=== PATIENT | female | born 1985 | race Caucasian/White ===

== ENCOUNTER 2016-03-24 16:22 | Emergency (ER) | payer OTHER ==
[~2016-03-24] VITALS: Ht 172.7 cm; Wt 128.4 kg
[~2016-03-24 16:22] MED LIST: BCPILLS PO; CITA40TA4 PO; MULT-506 PO
[2016-03-24 16:38] VITALS: TEMP 37; Ht 172.7 cm; Wt 128.4 kg
[2016-03-24 18:00] LABS: BASO % 0.3 %; BASO ABS # 0.02 K/uL (0-0.2); COMPLETE YES; EOS % 3.5 %; HEMATOCRIT 40.3 % (37-47); IG% 0.3 %; LYMPH % 37.4 %; LYMPH ABS # 2.46 K/uL (1.2-3.4); MEAN CELL VOLUME 86.7 fL (80-100); MEAN CORPUSCULAR HEMOGLOBIN 30.1 pg (25-34); MEAN CORPUSCULAR HGB CONC 34.7 g/dl (32-36); MEAN PLATELET VOLUME 10.7 fL (7.4-10.4); MONO % 4.3 %; NEUT % 54.2 %; PLATELET COUNT 203 K/uL (130-400); RED BLOOD COUNT 4.65 M/uL (4.2-5.4); WHITE BLOOD COUNT 6.57 K/uL (4.8-10.8)
[2016-03-24 18:20] LABS: ALT/SGPT 40 U/L (12-78); BLOOD UREA NITROGEN 10 mg/dl (7-18); BUN/CREATININE RATIO 14.7 (10-20); CALCIUM 8.8 mg/dl (8.5-10.1); CARBON DIOXIDE 24 mmol/L (21-32); CHLORIDE 107 mmol/L (98-107); CREATININE 0.66 mg/dl (0.60-1.20); GLUCOSE 72 mg/dl (70-99); POTASSIUM 3.6 mmol/L (3.5-5.1); SODIUM 142 mmol/L (136-145)
[2016-03-24 18:22] LABS: URINE APPEARANCE CLEAR (CLEAR); URINE BILIRUBIN NEG (NEG); URINE COLOR YELLOW; URINE NITRITE NEG (NEG); URINE PH 5.5 (4.5-7.5); URINE SPECIFIC GRAVITY 1.012 (1.000-1.030); UROBILINOGEN NEG (NEG); ZZUR CULT IF INDIC CLEAN CATCH NO
[2016-03-24 18:23] LABS: ALKALINE PHOSPHATASE 65 U/L (45-117); AST/SGOT 24 U/L (15-37)
[2016-03-24 18:24] LABS: MANUAL MICROSCOPIC REQUIRED? NO; REVIEW REQ? NO
--- NOTE | 2016-03-24 19:46 | DIAGNOSTIC IMAGING REPORT ---
PELVIC ULTRASOUND, TRANSABDOMINAL AND TRANSVAGINAL HISTORY: Bleeding lower pelvic pain COMPARISON: None. FINDINGS: Uterus: 7.8 cm Endometrial stripe: 3 mm Right ovary: 3.7 cm. Normal vascular flow. Left ovary: 3.0 cm. Normal vascular flow. Miscellaneous:No pelvic free fluid. IMPRESSION: No significant abnormality identified within the pelvis. Electronically signed by: Denis Sutton M.D. 03/24/2016 7:44 PM Dictated Date/Time: 03/24/2016 7:43 PM
[2016-03-24 20:22] VITALS: BP 147/84; PULSE 76; O2SAT 99
--- NOTE | 2016-03-24 21:17 | EMERGENCY ROOM VISIT NOTE ---
History Report prepared by Anne: Frank Renteria Under the Supervision of: Dr. Lionel Stewart D.O. First contact with patient: 17:25 Chief Complaint: URINARY SYMPTOMS Stated Complaint: URINATING BLOOD, PAIN IN ABDOMEN & URETHRA, NAUSEA Nursing Triage Summary: Reports lower abdominal pain and pain with urethra. Also reports hematuria. Seen at [facility] and tested negative for uti. Symptoms started 4 days ago. History of Present Illness The patient is a 30 year old female who presents to the Emergency Room with complaints of recurrent pain with urination for the past four days. The pain is felt in her urethra. The patient started to notice blood in her urine yesterday. She started to experience lower abdominal today. The patient also complains of nausea. She notes that it feels like she needs to urinate more after she is finished. Patient denies headache, change in vision, fevers, chest pain, shortness of breath, nausea, vomiting, diarrhea, vaginal bleeding/ discharge, urinary frequency, and melena. The patient was seen by [facility], where she tested negative for a UTI. She does not have a history of UTIs. She denies any history of herpes or other STDs. She does not have any genital lesions. LNMP was last week, which only lasted three days. She had an IUD that was improperly placed removed that week before her LMP. The patient is s/p appendectomy and cholecystectomy. Source of History: patient Onset: four days Position: other (urinary) Quality: other (pain with urination) Timing: other (recurrent) Associated Symptoms: + abdominal pain, + nausea, + urinary symptoms, No SOB , No chest pain, No diarrhea, No fevers, No headache, No melena, No vomiting Review of Systems See HPI for pertinent positives & negatives. A total of 10 systems reviewed and were otherwise negative. Past Medical & Surgical Medical Problems: (1) Active labor (2) Intrauterine (3) Lightheadedness Surgical Problems: (1) S/P appendectomy (2) S/P cholecystectomy Family History Patient reports no known family medical history. Social History Smoking Status: Never Smoker Housing Status: lives with family Current/Historical Medications Scheduled Control Pills ( Control Pills), 1 TAB PO QAM Citalopram (Citalopram Hydrobromide), 1 TAB PO QAM Allergies Coded Allergies: Chlorhexidine (Unverified Allergy, Unknown, UNKNOWN, 2/17/17) Isopropyl Alcohol (Unverified Allergy, Unknown, UNKNOWN, 03/24/16) Molds and Smuts (Verified Allergy, Unknown, HAYFEVER, 03/24/16) Sulfa Drugs (Verified Allergy, Unknown, rxn unknown, 03/24/16) Physical Exam Vital Signs Date Time Temp Pulse Resp B/P Pulse Ox O2 Delivery O2 Flow Rate FiO2 03/24/16 20:22 76 18 147/84 99 03/24/16 19:00 72 20 152/85 99 Room Air 03/24/16 16:38 37.0 79 18 141/92 98 Room Air Physical Exam GENERAL: Sitting up in bed, alert, well appearing, well nourished, no distress, non-toxic EYE EXAM: normal conjunctiva. OROPHARYNX: no exudate, no erythema, lips, buccal mucosa, and tongue normal and mucous membranes are moist NECK: supple, no nuchal rigidity, no adenopathy, non-tender LUNGS: Clear to auscultation. Normal chest wall mechanics HEART: no murmurs, S1 normal and S2 normal ABDOMEN: abdomen soft, tender to palpation in the suprapubic region, normo- active bowel sounds, no masses, no rebound or guarding. BACK: Back is symmetrical on inspection and there is no deformity, no midline tenderness, no CVA tenderness. SKIN: no rashes and no bruising UPPER EXTREMITIES: upper extremities are grossly normal. LOWER EXTREMITIES: No pitting edema. NEURO EXAM: Normal sensorium, cranial nerves II-XII grossly intact, normal speech, no gross weakness of arms, no gross weakness of legs. Gross sensation intact. PELVIC: Normal external genitalia, normal vaginal mucosa, no adnexal or cervical motion tenderness, cervix is closed with mild amount of swelling erythema. Medical Decision & Procedures ER Provider Diagnostic Interpretation: US results have been interpreted by the radiologist and reviewed by me. PELVIC ULTRASOUND, TRANSABDOMINAL AND TRANSVAGINAL HISTORY: Bleeding lower pelvic pain COMPARISON: None. FINDINGS: Uterus: 7.8 cm Endometrial stripe: 3 mm Right ovary: 3.7 cm. Normal vascular flow. Left ovary: 3.0 cm. Normal vascular flow. Miscellaneous:No pelvic free fluid. IMPRESSION: No significant abnormality identified within the pelvis. Electronically signed by: Denis Sutton M.D. 03/24/2016 7:44 PM Dictated Date/Time: 03/24/2016 7:43 PM Laboratory Results 03/24/16 17:51 Red Blood Count 4.65, Mean Corpuscular Volume 86.7, Mean Corpuscular Hemoglobin 30.1, Mean Corpuscular Hemoglobin Concent 34.7, Mean Platelet Volume 10.7, Neutrophils (%) (Auto) 54.2, Lymphocytes (%) (Auto) 37.4, Monocytes (%) (Auto) 4.3, Eosinophils (%) (Auto) 3.5, Basophils (%) (Auto) 0.3, Neutrophils # (Auto) 3.56, Lymphocytes # (Auto) 2.46, Monocytes # (Auto) 0.28, Eosinophils # (Auto) 0.23, Basophils # (Auto) 0.02 03/24/16 17:51 Test 03/24/16 00:00 03/24/16 17:51 03/24/16 19:50 Urine Color YELLOW Urine Appearance CLEAR (CLEAR) Urine pH 5.5 (4.5-7.5) Urine Specific [place] 1.012 (1.000-1.030) Urine Protein NEG (NEG) Urine Glucose (UA) NEG (NEG) Urine Ketones NEG (NEG) Urine Occult Blood NEG (NEG) Urine Nitrite NEG (NEG) Urine Bilirubin NEG (NEG) Urine Urobilinogen NEG (NEG) Urine Leukocyte Esterase NEG (NEG) Urine WBC (Auto) 1-5 /hpf (0-5) Urine RBC (Auto) 0-4 /hpf (0-4) Urine Hyaline Casts (Auto) 0 /lpf (0-5) Urine Epithelial Cells (Auto) 5-10 /lpf (0-5) Urine Bacteria (Auto) NEG (NEG) Urine Test NEG (NEG) White Blood Count 6.57 K/uL (4.8-10.8) Red Blood Count 4.65 M/uL (4.2-5.4) Hemoglobin 14.0 g/dL (12.0-16.0) Hematocrit 40.3 % (37-47) Mean Corpuscular Volume 86.7 fL (80-100) Mean Corpuscular Hemoglobin 30.1 pg (25-34) Mean Corpuscular Hemoglobin Concent 34.7 g/dl (32-36) Platelet Count 203 K/uL (130-400) Mean Platelet Volume 10.7 fL (7.4-10.4) Neutrophils (%) (Auto) 54.2 % Lymphocytes (%) (Auto) 37.4 % Monocytes (%) (Auto) 4.3 % Eosinophils (%) (Auto) 3.5 % Basophils (%) (Auto) 0.3 % Neutrophils # (Auto) 3.56 K/uL (1.4-6.5) Lymphocytes # (Auto) 2.46 K/uL (1.2-3.4) Monocytes # (Auto) 0.28 K/uL (0.11-0.59) Eosinophils # (Auto) 0.23 K/uL (0-0.5) Basophils # (Auto) 0.02 K/uL (0-0.2) RDW Standard Deviation 40.7 fL (36.4-46.3) RDW Coefficient of Variation 12.7 % (11.5-14.5) Immature Granulocyte % (Auto) 0.3 % Immature Granulocyte # (Auto) 0.02 K/uL (0.00-0.02) Anion Gap 11.0 mmol/L (3-11) Est Creatinine Clear Calc Drug Dose 173.3 ml/min Estimated GFR () 135.5 Estimated GFR (Non- 116.9 BUN/Creatinine Ratio 14.7 (10-20) Calcium Level 8.8 mg/dl (8.5-10.1) Total Bilirubin 0.3 mg/dl (0.2-1) Direct Bilirubin < 0.1 mg/dl (0-0.2) Aspartate Amino Transf (AST/SGOT) 24 U/L (15-37) Alanine Aminotransferase (ALT/SGPT) 40 U/L (12-78) Alkaline Phosphatase 65 U/L (45-117) Total Protein 7.8 gm/dl (6.4-8.2) Albumin 4.0 gm/dl (3.4-5.0) Lipase 179 U/L (73-393) Laboratory results per my review. ED Course ED COURSE: Vital signs were reviewed and were normal. The patients medical record was reviewed The above diagnostic studies were performed and reviewed. ED treatments and interventions as stated above. 1735: The patient was evaluated in room C1b. A complete history and physical examination was performed. 1950: Pelvic examination performed. 2000: Updated the patient. 2015: Upon reevaluation, the patient is stable.I discussed my findings with the patient and she understands and agrees with the treatment plan. Based on the patients age, coexisting illnesses, exam and lab findings the decision to treat as an outpatient was made. The patient remained stable while under my care. The patient appeared well at the time of discharge. Medical Decision Differential diagnoses includes but is not limited to appendicitis, diverticulitis, small bowel obstruction, malignancy, hernia, urinary tract infection, torsion, and ectopic (if female), perforation, trauma, infectious. Patient is a 30-year-old female who presents the ER with dysuria and a feeling that she has to void following urination. Patient does have lower pelvic pain and accommodation with this. No other complaints. She has a previous appendectomy/cholecystectomy. Vitals are unremarkable. CBC along with BMP, LFTs and lipase are normal. Her abdominal exam is completely benign. Last bowel movement was last night. Nothing to suggest obstruction. UA was negative. was negative. Pelvic was unremarkable with exception of slight erythematous cervix. She was nontender on exam. No discharge. She will start the Macrobid given to her by [facility]. Cultures were sent. If pain continues on Sunday she will follow-up with her ACCESS COORDINATOR or PCP. Discussed with Pt concerning signs and symptoms to watch out for. Pt was instructed to follow up with their PCP and discussed with the patient their option to return to the ED at anytime for persistent or worsening symptoms. The appropriate anticipatory guidance and out-patient management, including indications for return to the emergency department, were explained at length to the patient and understood. Impression Primary Impression: Symptoms involving urinary system Scribe Attestation The scribe's documentation has been prepared under my direction and personally reviewed by me in its entirety. I confirm that the note above accurately reflects all work, treatment, procedures, and medical decision making performed by me. Departure Information Dispostion Home / Self-Care Referrals No Doctor, Assigned (PCP) Forms HOME CARE DOCUMENTATION FORM, IMPORTANT VISIT INFORMATION Patient Instructions ED Dysuria Uncertain Cause, My [facility] Additional Instructions Please follow up with your primary care doctor with in the next 24 hours. Any worsening of your symptoms, please return to the ED immediately. This includes any fevers grade and 100.4, back pain, persistent nausea vomiting, unable to move her bowels, new vaginal bleeding or discharge, or any other concerning signs or symptoms from your standpoint. It may be beneficial at this point to start Macrobid which was given to you by [facility]. You will receive a call from us within 48 hours if your cultures return positive. If your symptoms persist for the next 48 hours you must follow up with your primary care doctor/gynecology immediately per
[2016-03-28 09:32] LABS: CHLAMYDIA TRACH RNA*** NOT DETECTED (NOT DETECTED); GC (NEIS GONORRHOEAE)RNA** NOT DETECTED (NOT DETECTED)
== END 2016-03-24 20:27 | disposition home or self-care (01) ==
LOC: C.EDB 16:24 → C.EDC 20:27
DX: R39.9 Unspecified symptoms and signs involving the genitourinary system (principal); Z90.49 Acquired absence of other specified parts of digestive tract

== ENCOUNTER → 2017-03-16 | Outpatient (CLI) | payer OTHER ==
[~2017-03-16] MED LIST changes: -MULT-506 PO
== END | disposition home or self-care (01) ==
LOC: C.LAB1850 15:00
PROVIDERS: ATTEND Obstetrics & Gynecology
DX: N93.9 Abnormal uterine and vaginal bleeding, unspecified (principal)

== ENCOUNTER → 2017-05-21 | Outpatient (CLI) | payer OTHER | END | disposition home or self-care (01) | LOC: C.RDSM 18:55 | PROVIDERS: ATTEND Physical Medicine & Rehabilitation Sports Medicine | DX: M25.531 Pain in right wrist (principal) ==

== ENCOUNTER 2019-12-26 08:34 | Observation (INO) ==
--- NOTE | 2019-12-02 13:24 | PAT Medication Instructions ---
Medication Instructions Date of Service December 02, 2019 Home Medications Medication Instructions Recorded norethindrone 1 mg-ethinyl 1 tab PO DAILY #28 tab 12/01/19 estradiol 20 mcg (24)-iron 75 mg (4) tablet Lactobacillus acidophilus [Probiotic] 0 cell PO QAM cholecalciferol (vitamin D3) [Vitamin D3] 1,000 unit PO QAM citalopram 20 mg PO QAM albuterol sulfate 2 puff INHALATION QID PRN loratadine 10 mg PO QAM metoprolol succinate 25 mg PO DAILY PRN norethindrone 1 mg-ethinyl estradiol 20 mcg (24)-iron 75 mg (4) tablet 1 tab PO DAILY ASK your surgeon for instructions norethindrone 1 mg-ethinyl estradiol 20 mcg (24)-iron 75 mg (4) tablet 1 tab PO DAILY DO NOT take the morning of surgery Lactobacillus acidophilus [Probiotic] 0 cell PO QAM cholecalciferol (vitamin D3) [Vitamin D3] 1,000 unit PO QAM loratadine 10 mg PO QAM Take morning of surgery With a small sip of water, OTHERWISE NOTHING TO EAT OR DRINK AFTER MIDNIGHT: citalopram 20 mg PO QAM albuterol sulfate 2 puff INHALATION QID PRN (use if needed; please bring with you to hospital day of surgery if possible) metoprolol succinate 25 mg PO DAILY PRN (if needed) Take evening before surgery albuterol sulfate 2 puff INHALATION QID PRN (if needed) Other Notes If you have any questions please call us at [phone] or [phone] or [phone] or [phone]
--- NOTE | 2019-12-04 14:49 | Anesthesiology Consultation ---
Date of Service December 04, 2019 Assessment & Plan (1) Encounter for pre-operative examination: Chart Review Chart Review: Acceptable Risk for Surgery (pending preop Covid testing ) and Patient seen in Pre Admission Testing - Check test AM DOS Per PAT appt on 12/04/19, patient works and resides in [facility]. Wears mask, uses good hand hygiene and socially distances. No known Covid positive contacts or Covid related symptoms. Pt scheduled for preop Covid testing 12/22/19. Educated on importance of self quarantining, social distancing and wearing mask in public both for the patient and household contacts. Teaching & Discussion Pre-Anesthesia Teaching/Discussion Notes: Instructed NPO after midnight before surgery,except medications with 15 cc of water. Medication instructions provided according to the [facility] guidelines. History Surgery Operation Date: 12/26/19 07:30 Proposed Procedures p Robotic Total Laparoscopic Hysterectomy - Solitario Iglesias MD Height/Weight Height: 5 ft 6 in Weight: 143.5 kg Allergies Allergy/AdvReac Type Severity Reaction Status Date / Time shellfish derived Allergy Severe Tongue/Throat Verified 12/04/19 13:20 Swelling chlorhexidine Allergy Mild HIVES Verified 12/04/19 13:20 lactose Allergy Mild GI SYMPTOMS Verified 12/04/19 13:20 mold Allergy Unknown HAYFEVER Verified 12/04/19 13:20 Sulfa (Sulfonamide Allergy Unknown Unknown Verified 12/04/19 13:20 Antibiotics) Medications Home Medications Medication Instructions Recorded Confirmed Last Taken Lactobacillus acidophilus 0 cell PO QAM 08/15/18 12/04/19 08/15/18 [Probiotic] cholecalciferol (vitamin D3) 1,000 unit PO QAM 08/15/18 12/04/19 08/15/18 [Vitamin D3] citalopram 20 mg PO QAM 08/15/18 12/04/19 08/15/18 albuterol sulfate 2 puff INHALATION QID PRN 11/15/18 12/04/19 Unknown loratadine 10 mg PO QAM 11/07/19 12/04/19 Unknown metoprolol succinate 25 mg PO DAILY PRN 11/07/19 12/04/19 Unknown norethindrone 1 mg-ethinyl 1 tab PO DAILY #28 tab 12/01/19 12/04/19 Unknown estradiol 20 mcg (24)-iron 75 mg (4) tablet Past Medical History Medical History (Updated 12/05/19 @ 08:49 by Susana Pacheco PA-C) Adenomyosis Anxiety Stable with medications Arthritis Fibrocystic breast disease Stable PVC (premature ventricular contraction) OCCURED WITH INTERMITTENT FASTING- PT NO LONGER INTERMITTENT FASTING Exercise / Class Metabolic Activity II 4-5 Yardwork/Stairs/Walk up hill (ONE FLIGHT OF STAIRS -NO CHEST PAIN OR SOB) Past Family History Family History Mother Arthritis Heart disease Atrial flutter Sister Asthma Bronchitis Gestational diabetes Grandmother Diabetes Cancer Colorectal cancer Grandfather Cancer Past Surgical History Surgical History History of anesthesia reaction "PANIC ATTACK WAKING UP" History of appendectomy 2010 History of breast biopsy Left Breast [id number] History of carpal tunnel release RIGHT History of laparoscopic cholecystectomy 2016 History of tonsillectomy Past Anesthesia History No Hx of Anesthesia Complications (WITH EXCEPTION POST OP ANXIETY AND SOB) and No Family Hx of Anesthesia Complications (WITH EXCEPTION TO MOTHER- ANXIOUS POSTOP ) History of PONV No Hx of PONV and Hx of Motion Sickness (SIGNIFICANT VERTIGO ) Social History Smoking Status: Former smoker Do You Dip or Chew Tobacco: No Smoking End Date: QUIT 10-12 YRS AGO Hx Alcohol Use: Yes Alcohol type: wine alcohol intake frequency: holidays/special occasions only Hx Substance Use: No Review of Systems Occ reflux - relieved with OTC Tums Patient denies chest pain, shortness of breath, dyspnea on exertion, cough, wheezing, palpitations. No hx of seizures, stroke, NV, apnea/snoring. No hx of blood clots or blood transfusions Physical Exam Vital Signs VITALS BP (unable to obtain- manual BP cuff not functioning properly- BP 128/72 at [facility] appt on 12/04/19) P 79 TEMP 98.0 SP02 98% RESP 16 PHYSICAL Constitutional: No acute distress. Morbid obesity Full neck and c-spine range of motion. Thick neck Full TMJ range of motion. TMD 3.5 finger breaths Mallampati Score II Dentition: Crowns to molars Lungs: clear throughout to auscultation Cardiac: regular rate and rhythm, no murmurs noted. No carotid bruits noted Extremities: no edema Testing Laboratory Results 12/04/19 15:15 12/04/19 15:15 Blood Type A Positive 12/04/19 15:15 Antibody Screen NEGATIVE 12/04/19 15:15 Electrocardiogram Date: 12/04/19 Findings: + NSR @ (73) Normal EKG. Other Testing Holter monitor 08/22/19= baseline rhythm - NSR. Occ isolated PVCs with single morphology. Very rare PACs. There were no pauses greater than 3 seconds or evidence of AVB. Symptoms of palpitations correlated predominantly with timing of isolated PVCs and rare ST.
[2019-12-04 15:46] LABS: Basophils # (auto) 0.02 K/uL (0-0.2); Basophils % (auto) 0.3 %; Eosinophils # (auto) 0.28 K/uL (0-0.5); Eosinophils % (auto) 3.6 %; Hematocrit (blood only) 38.6 % (37-47); Hemoglobin 12.9 g/dL (12.0-16.0); Immature Granulocytes # (auto) 0.03 K/uL (0.00-0.02); Immature Granulocytes % (auto) 0.4 %; Lymphocytes # (auto) 2.35 K/uL (1.2-3.4); Mean Corpuscular Hemoglobin 29.4 pg (25-34); Mean Corpuscular Hgb Conc 33.4 g/dL (32-36); Mean Corpuscular Volume 87.9 fL (80-100); Mean Platelet Volume 10.9 fL (7.4-10.4); Monocytes # (auto) 0.34 K/uL (0.11-0.59); Monocytes % (auto) 4.3 %; Neutrophils # (auto) 4.82 K/uL (1.4-6.5); Neutrophils % (auto) 61.4 %; Platelet Count 211 K/uL (130-400); RDW Coefficient of Variation 12.5 % (11.5-14.5); RDW Standard Deviation 40.2 fL (36.4-46.3); Red Blood Count 4.39 M/uL (4.2-5.4); White Blood Count 7.84 K/uL (4.8-10.8)
[2019-12-04 16:13] LABS: BUN Creatinine Ratio 16.2 (10-20); Calcium 8.8 mg/dl (8.5-10.1); Est GFR (African American) 131.7; Est GFR (Non-African American) 113.6
--- NOTE | 2019-12-05 05:36 | Electrocardiogram Report ---
Test Reason : Blood Pressure : / mmHG Vent. Rate : 073 BPM Atrial Rate : 073 BPM P-R Int : 178 ms QRS Dur : 092 ms QT Int : 420 ms P-R-T Axes : 065 069 037 degrees QTc Int : 462 ms Normal sinus rhythm Normal ECG When compared with ECG of 15-NOV-2018 19:33, Questionable change in QRS axis Confirmed by Tramaine De Paz ([id number]) on 12/05/2019 5:36:17 AM Referred By: Solitario Iglesias Confirmed By:Tramaine De Paz
[~2019-12-26 08:34] MED LIST changes: -BCPILLS PO; -CITA40TA4 PO; +LACTATED RINGER'S 1,000 ML IV SCH; +LR 15ML/HR IV SCH
[2019-12-26] MEDS ORDERED: BUPIVACAINE 0.5 % 5 MG/1 ML MPF 30ML VIAL ONE (08:44)
--- NOTE | 2019-12-26 08:58 | History & Physical Bridge Note ---
Date of Service December 26, 2019 History & Physical Bridge Note I have examined the patient, reviewed the History & Physical and in the interval since the performance of the History & Physical I have noted the following changes of clinical significance: no changes noted
[2019-12-26 09:00] LABS: Basophils # (auto) 0.02 K/uL (0-0.2); Basophils % (auto) 0.3 %; Eosinophils # (auto) 0.26 K/uL (0-0.5); Eosinophils % (auto) 3.4 %; Hemoglobin 13.9 g/dL (12.0-16.0); Immature Granulocytes # (auto) 0.01 K/uL (0.00-0.02); Immature Granulocytes % (auto) 0.1 %; Lymphocytes # (auto) 2.15 K/uL (1.2-3.4); Lymphocytes % (auto) 27.7 %; Mean Corpuscular Hemoglobin 29.8 pg (25-34); Mean Corpuscular Volume 90.1 fL (80-100); Mean Platelet Volume 10.8 fL (7.4-10.4); Monocytes # (auto) 0.28 K/uL (0.11-0.59); Monocytes % (auto) 3.6 %; Neutrophils # (auto) 5.04 K/uL (1.4-6.5); Neutrophils % (auto) 64.9 %; Platelet Count 226 K/uL (130-400); RDW Coefficient of Variation 12.8 % (11.5-14.5); RDW Standard Deviation 41.9 fL (36.4-46.3); Red Blood Count 4.66 M/uL (4.2-5.4); White Blood Count 7.76 K/uL (4.8-10.8)
[2019-12-26] MEDS ORDERED: ePHEDrine sulfate 50 MG/ML AMP IV PRN (09:13)
[2019-12-26] MEDS ORDERED: ATROPINE SULFATE 0.1 MG/ML 10ML SYR IV PRN (09:13)
[2019-12-26] MEDS ORDERED: fentaNYL citrate 100 MCG/2 ML VIAL IV PRN (09:13)
[2019-12-26] MEDS ORDERED: ONDANSETRON INJ 2 MG/ML 2 ML VIAL IV PRN ×2 (09:13→12:33)
[2019-12-26] MEDS ORDERED: LIDOCAINE HCL 2% 2 ML VIAL/AMP(20MG/ML) INFIL ONE (09:17)
[2019-12-26] MEDS ORDERED: PROPOFOL IV EMULSION 10 MG/ML 20 ML VIAL IV ONE ×2 (09:17→11:22)
[2019-12-26] MEDS ORDERED: MIDAZOLAM HCL 1 MG/ML 2ML VIAL ONE (09:18)
[2019-12-26] MEDS ORDERED: HYDROmorphone INJ 2 MG/ML SYR/VIAL ONE (09:18)
[2019-12-26] MEDS ORDERED: fentaNYL citrate 100 MCG/2 ML VIAL ONE (09:18)
[2019-12-26 09:20] LABS: Mean Corpuscular Hgb Conc 33.1 g/dL (32-36)
[2019-12-26] MEDS ORDERED: ONDANSETRON INJ 2 MG/ML 2 ML VIAL ONE (11:22)
[2019-12-26] MEDS ORDERED: DEXAMETHASONE SOD INJ 4 MG/ML VIAL ONE (11:22)
[2019-12-26] MEDS ORDERED: ROCURONIUM BROMIDE 10 MG/ML 5 ML VIAL IV ONE (11:22)
[2019-12-26] MEDS ORDERED: TISSEEL FIBRIN SEALANT 10ML TOP ONE (11:57)
[2019-12-26] MEDS ORDERED: SIMETHICONE 80 MG CHEW PO PRN (12:33)
[2019-12-26] MEDS ORDERED: oxyCODONE/ACETAMINOPHEN 5mg/325mg TAB PO PRN ×2 (12:33)
[2019-12-26] MEDS ORDERED: IBUPROFEN 600 MG TAB PO PRN (12:33)
[2019-12-26] MEDS ORDERED: KETOROLAC 30 MG/ML VIAL IV PRN (12:33)
[2019-12-26] MEDS ORDERED: ACETAMINOPHEN 325 MG TAB PO PRN (12:33)
--- NOTE | 2019-12-26 12:33 | Post Operative Brief Note ---
PG Immediate Post Op with CF Date of Surgery December 26, 2019 Pre & Post Diagnosis Operation Date: 12/26/19 10:15 Pre-Op Diagnosis: Menorrhagia, Pelvic Pain Post-Op Diagnosis: Menorrhagia, Pelvic Pain I identified the patient and participated in the time-out.: Yes Procedure Operation Date: 12/26/19 10:15 Actual Procedures p Robotic Total Laparoscopic Hysterectomy, Bilateral Salpingectomy, Cystoscopy(Not Applicable) - Solitario Iglesias MD Surgeon Solitario Iglesias MD Hand Wrapper Operator Dr Cat Estimated Blood Loss 20 Findings Consistent with Post-Op Diagnosis Specimens Specimen Description: A. Uterus, cervix, bilateral fallopian tubes Drains Gurrola Catheter
[2019-12-26] MEDS ORDERED: SUGAMMADEX SODIUM 200 MG/2 ML VIAL IV ONE (12:47)
[2019-12-26] MEDS ORDERED: TISSEEL FIBRIN SEALANT 4ML TOP ONE (12:53)
--- NOTE | 2019-12-26 13:12 | Operative Report (OR) ---
DATE OF OPERATION: 12/26/2019 PROCEDURE: Total laparoscopic hysterectomy, bilateral salpingectomy and cystoscopy. SURGEON: Solitario Iglesias MD. MARBLEIZING MACHINE TENDER: Mariam Cat MD. PREOPERATIVE DIAGNOSES: 1. Abnormal uterine bleeding. 2. Chronic pelvic pain. 3. Suspected adenomyosis. POSTOPERATIVE DIAGNOSES: 1. Abnormal uterine bleeding. 2. Chronic pelvic pain. 3. Suspected adenomyosis. 4. Status post procedure. ESTIMATED BLOOD LOSS: 20 mL. DRAINS: A Gurrola catheter. FLUIDS: Continuous lactated Ringer. URINE OUTPUT: 400 mL via Gurrola. COMPLICATIONS: None. FINDINGS: There is noted to be an approximate 11-12 week size uterus with findings consistent with adenomyosis due to a bulky appearance and irregular contours of the uterus. Both ovaries and fallopian tubes were unremarkable. There is noted to be bilateral ureteral efflux and intact bladder on cystoscopy at the completion of the case. DESCRIPTION OF PROCEDURE: The patient was taken to the operating room after consents were ensured. Upon presentation, she was properly identified. General endotracheal anesthesia was obtained without difficulty per COVID precautions, after which the patient was then prepped and draped in normal sterile fashion. A preprocedural timeout was performed. A speculum was then placed within the vagina. Cervix was visualized. Single tooth tenaculum was placed on the superior aspect of the cervix. A Awesome.meare uterine manipulator was then placed per hemodialysis technician specifications without difficulty. A Gurrola catheter was then placed and the laparoscopic portion of the case was then initiated. An incision was made in the superior aspect of the umbilicus to accommodate an 8 mm trocar. A Veress needle was inserted through the incision. The abdomen was insufflated to 15 mmHg. There was noted to be symmetric abdominal rise and tympany of liver and opening pressure of approximately 5 mmHg, all consistent with appropriate intra-abdominal insufflation. An 8 mm optically guided trocar was then introduced through the incision with atraumatic entry noted with immediate inspection after entry. Incisions were then made in the right, left, and left upper quadrant to accommodate 8 mm trocars, which were all placed without difficulty and atraumatic entry noted. The robot was then docked. The left round ligament was then identified, serially cauterized and dissected. The left fallopian tube was then dissected off the mesosalpinx. The left uteroovarian vessels were then serially cauterized and dissected and carried back to the level of the round ligament. The bladder flap was then created anteriorly starting on the left continued to the right side to the midline. The broad ligament was then serially cauterized down to the level of the uterine vessels on the left side. The right round ligament was then identified, serially cauterized and dissected. The right uteroovarian vessel was then serially cauterized, dissected and carried back to the level of the right round ligament dissection. The bladder flap was then continued anteriorly on the right connecting with the bladder flap initiated on the left. The bladder was then dissected off the lower uterine segment and cervix. The right broad ligament was then serially cauterized, dissected down to the level of the right uterine vessels. The V cup was then identified and the bladder was noted to be well dissected. Both uterine vessels were then serially cauterized and dissected. The colpotomy was then made anterior and continued circumferentially around the cervix, freeing the cervix from the vagina. The uterus and cervix were then delivered through the hysterotomy. The right fallopian tube was still intact and was then serially dissected and delivered through the assist port trocar. The left fallopian tube was still attached to the uterus and was dissected with the initial dissection of the left side. The vaginal cuff was then reapproximated with a V-Loc suture in continuous running stitch. Air tight seal was noted at the completion of the closure. The Tisseel was then distributed throughout all raw edges and vascular pedicles and excellent hemostasis was noted. The robot was then undocked. Abdomen desufflated. All skin incisions were reapproximated with 3-0 Vicryl with interrupted stitch. Dermabond placed on top. 12 mL of lidocaine were distributed throughout the 4 incisions. Needle, sponge and instrument counts were correct at the completion of the case. I attest to the content of the Intraoperative Record and any orders documented therein. Any exceptions are noted below. ALEXANDER
--- NOTE | 2019-12-26 13:55 | Anesthesiology Progress Note ---
Date of Service December 26, 2019 Anesthesia Post Procedure Vital Signs Vital Signs: Temp Pulse Pulse Resp BP Pulse Ox 12/26/19 13:50 97.3 F L 71 20 166/88 H 93 12/26/19 13:40 71 20 143/93 H 93 12/26/19 13:30 71 20 152/89 H 93 12/26/19 13:20 86 15 142/83 H 97 12/26/19 13:10 80 18 154/75 H 99 12/26/19 13:00 80 18 158/82 H 99 12/26/19 12:51 97.9 F 110 H 18 181/84 H 98 12/26/19 09:06 98.2 F 81 18 165/77 H 97 Transfer of Care Handoff Completed per policy Notes Mental Status: alert / awake / arousable and participated in evaluation Patient Amnestic to Procedure: Yes Nausea / Vomiting: adequately controlled Pain: adequately controlled Airway Patency, RR, SpO2: stable & adequate BP & HR: stable & adequate Hydration State: stable & adequate Anesthetic Complications: no major complications apparent and Pt Satisfied with anesthetic care
[2019-12-26] MEDS ORDERED: HYDROmorphone INJ 1 MG/ML SYRINGE IV STA (15:22)
[2019-12-26] MEDS ORDERED: DOCUSATE SODIUM 100 MG CAP PO SCH (21:00)
--- NOTE | 2019-12-31 00:13 | Discharge Summary (DS) ---
PROCEDURES: Total laparoscopic hysterectomy, bilateral salpingectomy, and cystoscopy. HOSPITAL COURSE: The patient was admitted for a total laparoscopic hysterectomy, bilateral salpingectomy, cystoscopy, which was performed without complication. The patient remained in-house for recovery for approximately 6-8 hours following the procedure and was discharged home in stable condition after meeting all postoperative criteria. Both written and verbal postoperative precautions and instructions were provided to the patient prior to discharge and is scheduled for followup in 2 weeks for postoperative care.
== END 2019-12-26 18:55 | disposition home or self-care (01) ==
LOC: ASU 08:34 → 4N 08:34

== ENCOUNTER 2024-10-30 12:38 | Observation (INO) ==
--- NOTE | 2024-10-30 12:59 | Emergency Department Note ---
Impression & Plan Chest pain, Foreign body aspiration, Throat pain ED Provider Note NAME: CINDI SALDANA AGE: 38 SEX: F : 1985 ARRIVES VIA: Walk-In INFORMANT: Patient ED PROVIDER(S): Lionel Stewart DO CHIEF COMPLAINT: Aspiration HPI: Patient is a 38-year-old female who presents to the ER as she was eating a trail mix bar yesterday. She inhaled quickly and felt like it went down into her throat. She has been coughing since then. She notes today with the coughing she is having some right sided chest pain. Denies any shortness of breath. No belly pain. No nausea, vomiting, or diarrhea. She still feels like there is some stuck in her throat and she has been drinking warm fluids. No dysuria, urgency or frequency. No other exacerbating or remitting factors. ADDITIONAL HISTORY OBTAINED: Per HPI Chronic Medical/Social Conditions Affecting Care: Per HPI PAST MEDICAL HISTORY:See Below PAST SURGICAL HISTORY:See Below FAMILY HISTORY:See Below SOCIAL HISTORY:See Below HOME MEDICATIONS:See Below ALLERGIES:See Below VITALS:See Below PHYSICAL EXAMINATION: GENERAL: Sitting up in bed, alert, well appearing, well nourished, no distress, non-toxic EYE EXAM: normal conjunctiva. OROPHARYNX: no exudate, no erythema, lips, buccal mucosa, and tongue normal and mucous membranes are moist NECK: supple, no nuchal rigidity, no adenopathy, non-tender LUNGS: Clear to auscultation. Normal chest wall mechanics HEART: no murmurs, S1 normal and S2 normal ABDOMEN: abdomen soft, non-tender, normo-active bowel sounds, no masses, no rebound or guarding. BACK: Back is symmetrical on inspection and there is no deformity, no midline tenderness, no CVA tenderness. SKIN: no rashes and no bruising UPPER EXTREMITIES: upper extremities are grossly normal. LOWER EXTREMITIES: No pitting edema. NEURO EXAM: Normal sensorium, cranial nerves II-XII grossly intact, normal speech, no gross weakness of arms, no gross weakness of legs. MEDICAL DECISION MAKING: Patient is a 38-year-old female who presents ER for chest pain following a possible aspiration. IV was established blood work is obtained. Vitals were unremarkable. Labs showed no significant leukocytosis or anemia. BMP with LFTs bilirubin and lipase is unremarkable. Troponin was negative. CT of the chest showed no significant abnormalities. Spoke with Dr. Mattson from pulmonology as well as check from ENT. Patient will be admitted and taken to the OR tomorrow morning. Updated Dr. Villalta who will admit the patient as they were unable to scope her tonight. Consults/Care Managements Discussions: Per [facility] Triage Nursing notes reviewed. Limited review of prior medical records performed Vital Signs: reviewed and remarkable for no significant abnormalities Differential diagnosis: Cardiac ischemia, aortic dissection, pulmonary embolism, pneumothorax, pneumonia, pericarditis, myocarditis, esophageal rupture, GERD, cholecystitis, pancreatitis, musculoskeletal, as well as other pathologies. ER treatment provided: See below Diagnostics interpreted by me include EKG and cardiac monitoring as listed below: -Cardiac Monitoring: An order was placed for continuous cardiac monitoring. The monitor shows a rate of 70 with sinus rhythm. -ECG: Sinus rhythm rate 72 Normal axis T wave inversion lead III PVC QTc 453 -Laboratory studies:Interpreted by me as stated above in MDM and shown below. Imaging studies: Xrays: As interpreted by me: Portable AP upright 1 view of the chest shows no focal Lutrate CTs show: CT of the chest as described above Procedures:none Critical Care: None Past Med/Surg History Problem List (Updated 10/30/24 @ 16:59 by Lionel Stewart DO) Throat pain (Acute) Chest pain (Acute) Obesity (BMI 35.0-39.9 without comorbidity) Foreign body aspiration (Acute) Encounter for pre-operative examination S/P appendectomy (Chronic) S/P cholecystectomy (Chronic) Symptoms involving urinary system (Acute) Medical History Morbid obesity with BMI of 50.0-59.9, adult Sleep apnea recent diagnosis--not currently on treatment History of COVID-19 06/2021 PCR test--mild symptoms last for 3 days she stated Nausea and vomiting after administration of anesthetic agent denies needing scop patch Adenomyosis Anxiety Stable PVC (premature ventricular contraction) OCCURED WITH INTERMITTENT FASTING- PT NO LONGER INTERMITTENT FASTING and denies known recurrence--also has metoprolol prn Fibrocystic breast disease Stable Surgical History History of partial hysterectomy 12/26/19 Grade 1 view, MAC 3, ETT 7.5. "required additional sedative" History of anesthesia reaction "PANIC ATTACK WAKING UP" History of carpal tunnel release RIGHT History of laparoscopic cholecystectomy 2016 History of appendectomy 2010 History of breast biopsy Left Breast [id number] History of tonsillectomy Family History Mother Arthritis Atrial flutter Heart disease Family history of reaction to anesthesia wakes up in panic and feels like she cant breathe Sister Gestational diabetes Bronchitis Asthma Family history of reaction to anesthesia nausea/vomiting Grandmother Diabetes Colorectal cancer Cancer Grandfather Cancer Social History Smoking Status: Former smoker Tobacco Type: Cigarettes Second Hand Exposure: No; Do You Dip or Chew Tobacco: No; Hx Alcohol Use: Yes Alcohol type: wine Hx Substance Use: No Preferred Language: Mexican Communication Ability: Effective Boiling House Hand Required: No Beliefs That Will Affect Care: None Current Living Situation: Spouse and Family Feels Safe at Home: Yes Assistive Devices: Contacts and Glasses Allergies Allergies Allergy/AdvReac Type Severity Reaction Status Date / Time shellfish derived Allergy Severe Tongue/Throat Verified 01/31/22 12:02 Swelling mold Allergy Intermediate HAYFEVER Verified 01/31/22 12:02 chlorhexidine Allergy Mild HIVES Verified 01/31/22 12:02 lactose Allergy Mild GI SYMPTOMS Verified 01/31/22 12:02 Sulfa (Sulfonamide Allergy Mild Unknown Verified 01/31/22 12:02 Antibiotics) cantaloupe Allergy Swelling Unverified 10/30/24 16:39 of Lip/Tongue/Throat Home Meds Home Medications Medication Instructions Recorded Confirmed cholecalciferol (vitamin D3) 25 1,000 unit PO QAM 08/15/18 10/30/24 mcg (1,000 unit) tablet (Vitamin D3) albuterol sulfate 90 mcg/actuation 2 puff inhalation QID PRN Wheezing 11/15/18 10/30/24 aerosol inhaler multivitamin 1 tab PO DAILY 10/30/24 10/30/24 semaglutide (weight loss) 0.5 0.5 mg subcut WK 10/30/24 10/30/24 mg/0.5 mL subcutaneous pen injector (Donato) Results & Data (ED) Vital Signs Vital Signs - 24 hr 10/30/24 12:39 10/30/24 12:47 10/30/24 12:57 Temperature 36.5 C Temperature Source Temporal Artery Scan Pulse Rate 67 79 Pulse Rate [Apical] Pulse Rate from SpO2 Sensor Pulse Rhythm [Apical] Respiratory Rate 20 20 Respiratory Effort / Characteristics Non-Labored Spontaneous Respiratory Depth Normal Blood Pressure 131/74 Blood Pressure [Right Arm] Blood Pressure Mean 93 Blood Pressure Mean [Right Arm] Pulse Oximetry 100 100 Oxygen Delivery Method Room Air Room Air Sepsis Recent Fever Within 48 Hours No Sepsis New/Unexplained Change in Mental Status No Sepsis Action Taken by Nursing No Action Required 10/30/24 13:47 10/30/24 14:36 10/30/24 14:48 Temperature Temperature Source Pulse Rate 73 69 Pulse Rate [Apical] Pulse Rate from SpO2 Sensor 70 Pulse Rhythm [Apical] Respiratory Rate 23 Respiratory Effort / Characteristics Respiratory Depth Blood Pressure 114/75 114/75 Blood Pressure [Right Arm] Blood Pressure Mean 88 88 Blood Pressure Mean [Right Arm] Pulse Oximetry 100 Oxygen Delivery Method Sepsis Recent Fever Within 48 Hours Sepsis New/Unexplained Change in Mental Status Sepsis Action Taken by Nursing 10/30/24 14:48 10/30/24 14:48 10/30/24 14:48 Temperature Temperature Source Pulse Rate 73 Pulse Rate [Apical] Pulse Rate from SpO2 Sensor 75 Pulse Rhythm [Apical] Respiratory Rate 21 Respiratory Effort / Characteristics Respiratory Depth Blood Pressure 114/75 114/75 Blood Pressure [Right Arm] Blood Pressure Mean 88 88 Blood Pressure Mean [Right Arm] Pulse Oximetry 97 Oxygen Delivery Method Sepsis Recent Fever Within 48 Hours Sepsis New/Unexplained Change in Mental Status Sepsis Action Taken by Nursing 10/30/24 14:57 10/30/24 15:10 10/30/24 15:11 Temperature Temperature Source Pulse Rate 75 Pulse Rate [Apical] 72 Pulse Rate from SpO2 Sensor 73 Pulse Rhythm [Apical] Regular Respiratory Rate 17 18 Respiratory Effort / Characteristics Respiratory Depth Normal Blood Pressure 122/66 Blood Pressure [Right Arm] 122/66 Blood Pressure Mean 83 Blood Pressure Mean [Right Arm] 84 Pulse Oximetry 97 98 Oxygen Delivery Method Room Air Sepsis Recent Fever Within 48 Hours Sepsis New/Unexplained Change in Mental Status Sepsis Action Taken by Nursing 10/30/24 15:12 10/30/24 15:24 10/30/24 15:30 Temperature Temperature Source Pulse Rate 68 81 Pulse Rate [Apical] Pulse Rate from SpO2 Sensor 67 80 Pulse Rhythm [Apical] Respiratory Rate 20 12 Respiratory Effort / Characteristics Respiratory Depth Blood Pressure 131/96 Blood Pressure [Right Arm] Blood Pressure Mean 105 Blood Pressure Mean [Right Arm] Pulse Oximetry 96 98 Oxygen Delivery Method Sepsis Recent Fever Within 48 Hours Sepsis New/Unexplained Change in Mental Status Sepsis Action Taken by Nursing 10/30/24 15:30 10/30/24 15:30 10/30/24 15:45 Temperature Temperature Source Pulse Rate 73 Pulse Rate [Apical] Pulse Rate from SpO2 Sensor 72 Pulse Rhythm [Apical] Respiratory Rate 19 Respiratory Effort / Characteristics Respiratory Depth Blood Pressure 131/96 131/96 Blood Pressure [Right Arm] Blood Pressure Mean 105 105 Blood Pressure Mean [Right Arm] Pulse Oximetry 93 Oxygen Delivery Method Sepsis Recent Fever Within 48 Hours Sepsis New/Unexplained Change in Mental Status Sepsis Action Taken by Nursing 10/30/24 15:51 10/30/24 16:00 10/30/24 16:00 Temperature Temperature Source Pulse Rate 70 Pulse Rate [Apical] Pulse Rate from SpO2 Sensor 74 Pulse Rhythm [Apical] Respiratory Rate 14 Respiratory Effort / Characteristics Respiratory Depth Blood Pressure 120/80 120/80 Blood Pressure [Right Arm] Blood Pressure Mean 89 89 Blood Pressure Mean [Right Arm] Pulse Oximetry 88 L Oxygen Delivery Method Sepsis Recent Fever Within 48 Hours Sepsis New/Unexplained Change in Mental Status Sepsis Action Taken by Nursing 10/30/24 16:00 10/30/24 16:06 Temperature Temperature Source Pulse Rate 73 Pulse Rate [Apical] Pulse Rate from SpO2 Sensor 69 Pulse Rhythm [Apical] Respiratory Rate 17 Respiratory Effort / Characteristics Respiratory Depth Blood Pressure 120/80 Blood Pressure [Right Arm] Blood Pressure Mean 89 Blood Pressure Mean [Right Arm] Pulse Oximetry 99 Oxygen Delivery Method Sepsis Recent Fever Within 48 Hours Sepsis New/Unexplained Change in Mental Status Sepsis Action Taken by Nursing Laboratory Data 10/30/24 13:08 10/30/24 13:08 Lab Results 10/30/24 10/30/24 Range/Units 13:08 13:23 WBC 7.99 (4.8-10.8) K/ul RBC 4.60 (4.20-5.40) M/uL Hgb 14.4 (12.0-16.0) g/dl POC Hgb 12.9 (12.0-16.0) g/dl Hct 40.6 (37.0-47.0) % POC Hct 38 (37-47) % MCV 88.3 (80.0-100.0) fL MCH 31.3 (25.0-34.0) pg MCHC 35.5 (32.0-36.0) g/dL RDW Std Deviation 37.4 (36.4-46.3) fL RDW Coeff of Kelin 11.7 (11.5-14.5) % Plt Count 213 (130-400) K/uL MPV 11.2 (9.4-12.4) fL Immature Gran % (Auto) 0.3 % Neut % (Auto) 67.9 % Lymph % (Auto) 24.9 % [place] % (Auto) 4.5 % Eos % (Auto) 1.9 % Baso % (Auto) 0.5 % Neut # (Auto) 5.43 (1.40-6.50) K/uL Lymph # (Auto) 1.99 (1.20-3.40) K/uL [place] # (Auto) 0.36 (0.11-0.59) K/uL Eos # (Auto) 0.15 (0.00-0.50) K/uL Baso # (Auto) 0.04 (0.00-0.20) K/uL Immature Gran # (Auto) 0.02 (0.01-0.20) K/uL POC Sodium 139 (135-144) mmol/L Sodium 140 (136-145) mmol/L POC Potassium 4.0 (3.3-5.0) mmol/L Potassium 3.8 (3.5-5.1) mmol/L POC Chloride 103 (101-112) mmol/L Chloride 103 (98-107) mmol/L Carbon Dioxide 30 (21-32) mmol/L POC Total CO2 29 (24-31) mmol/L Anion Gap 7 (3-11) POC Anion Gap 12.0 L (16-25) mmol/L POC BUN 17 (7-18) mg/dl BUN 15 (6-23) mg/dl Creatinine 0.60 (0.6-1.2) mg/dl POC Creatinine 0.8 (0.6-1.3) mg/dl Est Cr Clr Drug Dosing 152.5 ml/min eGFR 116.30 BUN/Creatinine Ratio 25.0 H (10-20) Glucose 83 (70-99(Fasting)) mg/dl POC Glucose (other) 87 (70-99) mg/dl Calcium 9.7 (8.6-10.3) mg/dl POC Ioniz Calcium Yolanda 1.20 (1.12-1.32) mmol/l Total Bilirubin 0.4 (0.2-1.0) mg/dl AST 16 (13-39) U/L ALT 15 (7-52) U/L Alkaline Phosphatase 46 (34-104) U/L Troponin I High Sens < 2.3 (0-14) pg/ml Total Protein 7.8 (6.0-8.3) gm/dl Albumin 4.4 (3.4-5.0) gm/dl Globulin 3.4 (2.5-4.0) gm/dl Albumin/Globulin Ratio 1.3 (0.9-2) Lipase 27 (11-82) U/L Administered Medications Discontinued Medications Ioversol (Optiray 320 100ml) 94 ml IV ONCE ONE Stop: 10/30/24 13:53 Last Admin: 10/30/24 13:52 Dose: 94 ml Documented By: [facility] Imaging Data Radiologist's Impression: Chest CT 10/30/24 12:[address] WITH CONTRAST CT DOSE: 952.08 mGy.cm HISTORY: Acute cough with aspiration aspirated trail mix bar coughing TECHNIQUE: Multiaxial CT images of the chest were performed following the IV administration of 94 cc of Optiray. A dose lowering technique was utilized adhering to the principles of ALARA. COMPARISON: Chest x-ray same day FINDINGS: Subcentimeter right thyroid lobe calcification. No pathologically enlarged lymph nodes are seen. Heart is normal in size without pericardial effusion. No thoracic aortic aneurysm. Unremarkable pulmonary artery. No pneumothorax, pleural effusion, airspace consolidation or pulmonary edema. Central airways appear patent. No aspirated foreign body is seen. No suspicious pulmonary nodule or mass. Postoperative changes of the stomach. Partially imaged 7 cm left renal cyst. Cholecystectomy. Unremarkable soft tissues. No acute fracture. IMPRESSION: Unremarkable CT of the chest. ACT 112: Negative or not required by law. Electronically signed by: Solitario Dean M.D. 10/30/2024 2:17 PM Chest X-Ray 10/30/24 12:57 XR chest 1V portable CLINICAL HISTORY: Chest pain, nonspecific COMPARISON STUDY: 04/06/2022 FINDINGS: Heart size and pulmonary vasculature are normal. No consolidation or pleural effusion. No pneumothorax. IMPRESSION: No acute findings. ACT 112: Negative or not required by law. Electronically signed by: Edgardo Wilson M.D. 10/30/2024 1:18 PM Discharge Plan Visit Data Chief Complaint: Chest Pain Stated Complaint: APSIRATED, LUNG PAIN,FELLS LIKE SOMETHING IS STUCK ED Provider: Lionel Stewart Discharge Problem: Chest pain, Foreign body aspiration, Throat pain Condition: Fair Forms Stand Alone Forms: [facility] [employer]to Prescriptions Prescriptions: No Action cholecalciferol (vitamin D3) [Vitamin D3] 1,000 unit Tablet 1,000 unit PO QAM albuterol sulfate 90 mcg/actuation HFA aerosol inhaler 2 puff inhalation QID PRN (Reason: Wheezing) Wegovy 0.5 mg/0.5 mL pen injector 0.5 mg SUBCUT WK Rx Instructions: Sunday multivitamin Tablet 1 tab PO DAILY Referrals Referrals: Kathy Pereira PA-C [Primary Care Provider] - Discharge Problem: Chest pain Qualifiers: Chest pain type: unspecified Qualified Code(s): R07.9 - Chest pain, unspecified Foreign body aspiration Qualifiers: Encounter type: initial encounter Qualified Code(s): T17.908A - Unspecified foreign body in respiratory tract, part unspecified causing other injury, initial encounter
--- NOTE | 2024-10-30 13:19 | XRay Report ---
XR chest 1V portable CLINICAL HISTORY: Chest pain, nonspecific COMPARISON STUDY: 04/06/2022 FINDINGS: Heart size and pulmonary vasculature are normal. No consolidation or pleural effusion. No p neumothorax. IMPRESSION: No acute findings. ACT 112: Negative or not required by law. Electronically signed by: Edgardo Wilson M.D. 10/30/2024 1:18 PM
[2024-10-30 13:26] LABS: Hematocrit (blood only) 40.6 % (37.0-47.0); Hemoglobin 14.4 g/dl (12.0-16.0); Immature Granulocytes # (auto) 0.02 K/uL (0.01-0.20); Immature Granulocytes % (auto) 0.3 %; Mean Corpuscular Hemoglobin 31.3 pg (25.0-34.0); Mean Corpuscular Volume 88.3 fL (80.0-100.0); Platelet Count 213 K/uL (130-400); RDW Standard Deviation 37.4 fL (36.4-46.3); Red Blood Count 4.60 M/uL (4.20-5.40); White Blood Count 7.99 K/ul (4.8-10.8)
[2024-10-30 13:45] LABS: Alanine Aminotransferase 15 U/L (7-52); Albumin Globulin Ratio 1.3 (0.9-2); Albumin Level 4.4 gm/dl (3.4-5.0); Alkaline Phosphatase 46 U/L (34-104); Anion Gap 7 (3-11); Bilirubin,Total 0.4 mg/dl (0.2-1.0); Blood Urea Nitrogen 15 mg/dl (6-23); Calcium 9.7 mg/dl (8.6-10.3); Carbon Dioxide 30 mmol/L (21-32); Chloride 103 mmol/L (98-107); Creatinine Clr Calc Pharmacy 152.5 ml/min; Globulin 3.4 gm/dl (2.5-4.0); Glucose 83 mg/dl (70-99(Fasting)); Lipase 27 U/L (11-82); Potassium 3.8 mmol/L (3.5-5.1); Sodium 140 mmol/L (136-145); Total Protein 7.8 gm/dl (6.0-8.3)
[2024-10-30] MEDS: OPTIRAY 320 100ml IV ONE (13:52)
--- NOTE | 2024-10-30 14:19 | CT Scan Report ---
CHEST CT WITH CONTRAST CT DOSE: 952.08 mGy.cm HISTORY: Acute cough with aspiration aspirated trail mix bar coughing TECHNIQUE: Multiaxial CT images of the chest were performed following the IV administration of 94 cc of Optiray. A dose lowering technique was utilized adhering to the principles of ALARA. COMPARISON: Chest x-ray same day FINDINGS: Subcentimeter right thyroid lobe calcification. No pathologically enlarged lymph nodes are seen. Heart is normal in size without pericardial effusion. No thoracic aortic aneurysm. Unremarkable pulmonary artery. No pneumothorax, pleural effusion, airspace consolidation or pulmonary edema. Central airways appear patent. No aspirated foreign body is seen. No suspicious pulmonary nodule or mass. Postoperative leal ges of the stomach. Partially imaged 7 cm left renal cyst. Cholecystectomy. Unremarkable soft tissues . No acute fracture. IMPRESSION: Unremarkable CT of the chest. ACT 112: Negative or not required by law. Electronically signed by: Solitario Dean M.D. 10/30/2024 2:17 PM
--- NOTE | 2024-10-30 15:50 | Pulmonary Consultation ---
Date of Consultation October 30, 2024 Assessment & Plan (1) Foreign body aspiration: Patient with cough, throat irritation, and chest discomfort following suspected aspiration of peanut into larynx and/or lungs. I was contacted by the ED provider Dr. Lionel Stewart. I recommended contacting ENT for consideration of bedside fiberoptic nasolaryngoscopy. However, the on-call ENT provider did not think that they would be able to with this situation. I saw the patient in the ED. She feels that there is a piece of peanut stuck in her throat, in the area right behind the suprasternal notch. Initially, I tried to schedule the patient for bronchoscopy later this afternoon, around 5 pm, and was able to get Anesthesia Service to provide sedation during the procedure. However, it turned out that Respiratory Therapy were unable to provide assistance at this time. I discussed the issue with the patient, and I recommended hospitalization overnight, and will work on performing bronchoscopy early tomorrow morning, hoping to allow the patient to be discharged later in the day. Encounter type: initial encounter Qualified Code(s): T17.908A - Unspecified foreign body in respiratory tract, part unspecified causing other injury, initial encounter History of Present Illness Reason for Consultation: Suspected foreign body aspiration. Requesting Physician: Dr. Lionel Stewart History of Present Illness The patient is a very pleasant 38-year-old female who presented to the ED after experiencing a sensation of something going down her throat while eating a trail mix bar the previous day. She reported persistent coughing since the incident and, on the day of presentation to the ED, developed right-sided chest pain associated with the coughing. She denied any shortness of breath. She continued to feel as though something remained stuck in her throat and had been drinking warm fluids in an attempt to alleviate the sensation. I was contacted by the ED provider Dr. Lionel Stewart. I recommended contacting ENT for consideration of bedside fiberoptic nasolaryngoscopy. However, the on-call ENT provider did not think that they would be able to with this situation. I saw the patient in the ED. She was in no distress, but she was very frustrated. She feels that there is a piece of peanut stuck in her throat, in the area right behind the suprasternal notch. Initially, I tried to schedule the patient for bronchoscopy later this afternoon, around 5 pm, and was able to get Anesthesia Service to provide sedation during the procedure. However, it turned out that Respiratory Therapy were unable to provide assistance at this time. I discussed the issue with the patient, and I recommended hospitalization overnight, and will work on performing bronchoscopy early tomorrow morning, hoping to allow the patient to be discharged later in the day. Allergies Allergy/AdvReac Type Severity Reaction Status Date / Time shellfish derived Allergy Severe Tongue/Throat Verified 01/31/22 12:02 Swelling mold Allergy Intermediate HAYFEVER Verified 01/31/22 12:02 chlorhexidine Allergy Mild HIVES Verified 01/31/22 12:02 lactose Allergy Mild GI SYMPTOMS Verified 01/31/22 12:02 Sulfa (Sulfonamide Allergy Mild Unknown Verified 01/31/22 12:02 Antibiotics) Home Medications Medication Instructions Recorded Confirmed Type cholecalciferol (vitamin D3) 25 1,000 unit PO QAM 08/15/18 01/31/22 History mcg (1,000 unit) tablet (Vitamin D3) citalopram 20 mg tablet 20 mg PO QAM 08/15/18 01/31/22 History albuterol sulfate 90 mcg/actuation 2 puff inhalation QID PRN Wheezing 11/15/18 01/31/22 History aerosol inhaler loratadine 10 mg capsule (Claritin 10 mg PO QAM PRN Allergy Symptoms 11/07/19 01/31/22 History Liqui-Gel) metoprolol succinate 25 mg 25 mg PO DAILY PRN PVCs 11/07/19 01/31/22 History tablet,extended release 24 hr garlic 1,000 mg capsule 1,000 mg PO QAM 01/12/22 01/31/22 History turmeric 400 mg capsule 400 mg PO QAM 01/12/22 01/31/22 History Patient History Medical History Morbid obesity with BMI of 50.0-59.9, adult Sleep apnea recent diagnosis--not currently on treatment History of COVID-19 06/2021 PCR test--mild symptoms last for 3 days she stated Nausea and vomiting after administration of anesthetic agent denies needing scop patch Adenomyosis Anxiety Stable PVC (premature ventricular contraction) OCCURED WITH INTERMITTENT FASTING- PT NO LONGER INTERMITTENT FASTING and denies known recurrence--also has metoprolol prn Fibrocystic breast disease Stable Surgical History History of partial hysterectomy 12/26/19 Grade 1 view, MAC 3, ETT 7.5. "required additional sedative" History of anesthesia reaction "PANIC ATTACK WAKING UP" History of carpal tunnel release RIGHT History of laparoscopic cholecystectomy 2016 History of appendectomy 2010 History of breast biopsy Left Breast [id number] History of tonsillectomy Family History Mother Arthritis Atrial flutter Heart disease Family history of reaction to anesthesia wakes up in panic and feels like she cant breathe Sister Gestational diabetes Bronchitis Asthma Family history of reaction to anesthesia nausea/vomiting Grandmother Diabetes Colorectal cancer Cancer Grandfather Cancer Social History Smoking Status: Former smoker Tobacco Type: Cigarettes Second Hand Exposure: No; Do You Dip or Chew Tobacco: No; Hx Alcohol Use: Yes Alcohol type: wine Hx Substance Use: No Preferred Language: Turkish Communication Ability: Effective Mixer Foam Rubber Required: No Beliefs That Will Affect Care: None Current Living Situation: Spouse and Family Feels Safe at Home: Yes Assistive Devices: Contacts and Glasses Review of Systems Review of Systems: All systems reviewed & are unremarkable except as noted in HPI & below Physical Exam Physical Exam: Vitals and labs reviewed. General: In no acute distress, breathing room-air. Overweight. Skin: Warm and dry to touch. Noobvious lesions. Eyes: Anicteric.Noconjunctival hyperemia or exudates.No periorbital edema. ENT: No oral thrush. No oropharyngeal erythema or exudates. Mallampati 1. Neck: No palpable masses or adenopathy. Respiratory: Clear breath sounds, no wheezing or crackles. No use of accessory muscles and no prolonged exhalation. Cardiac: Distant sounds, regular rhythm, no murmurs, no gallops, no rubs; could not appreciate JV pulse elevation. GI: Soft, nontender. Extremities No clubbing,no cyanosis,no edema. Neuro: No gross motor deficits. Seems frustrated and became tearful when I recommended overnight hospitalization, otherwise appropriate. Results & Data Results & Data Vital Signs (Past 12 Hours) Vital Signs Temp Pulse Pulse Resp BP BP Pulse Ox 10/30/24 15:10 72 18 122/66 98 10/30/24 14:36 69 23 114/75 100 10/30/24 13:47 73 10/30/24 12:57 79 20 100 10/30/24 12:47 36.5 C 67 20 131/74 100 O2 Del Method 10/30/24 15:10 Room Air 10/30/24 14:36 10/30/24 13:47 10/30/24 12:57 Room Air 10/30/24 12:47 Room Air Laboratory Results 10/30/24 10/30/24 13:23 13:08 WBC 7.99 RBC 4.60 Hgb 14.4 POC Hgb 12.9 Hct 40.6 POC Hct 38 MCV 88.3 MCH 31.3 MCHC 35.5 RDW Std Deviation 37.4 RDW Coeff of Kelin 11.7 Plt Count 213 MPV 11.2 Immature Gran % (Auto) 0.3 Neut % (Auto) 67.9 Lymph % (Auto) 24.9 [place] % (Auto) 4.5 Eos % (Auto) 1.9 Baso % (Auto) 0.5 Neut # (Auto) 5.43 Lymph # (Auto) 1.99 [place] # (Auto) 0.36 Eos # (Auto) 0.15 Baso # (Auto) 0.04 Immature Gran # (Auto) 0.02 POC Sodium 139 Sodium 140 POC Potassium 4.0 Potassium 3.8 POC Chloride 103 Chloride 103 Carbon Dioxide 30 POC Total CO2 29 Anion Gap 7 POC Anion Gap 12.0 L POC BUN 17 BUN 15 Creatinine 0.60 POC Creatinine 0.8 Est Cr Clr Drug Dosing 152.5 eGFR 116.30 BUN/Creatinine Ratio 25.0 H Glucose 83 POC Glucose (other) 87 Calcium 9.7 POC Ioniz Calcium Yolanda 1.20 Total Bilirubin 0.4 AST 16 ALT 15 Alkaline Phosphatase 46 Troponin I High Sens < 2.3 Total Protein 7.8 Albumin 4.4 Globulin 3.4 Albumin/Globulin Ratio 1.3 Lipase [address] 10/30/24 12:[address] WITH CONTRAST COMPARISON: Chest x-ray same day FINDINGS: Subcentimeter right thyroid lobe calcification. No pathologically enlarged lymph nodes are seen. Heart is normal in size without pericardial effusion. No thoracic aortic aneurysm. Unremarkable pulmonary artery. No pneumothorax, pleural effusion, airspace consolidation or pulmonary edema. Central airways appear patent. No aspirated foreign body is seen. No suspicious pulmonary nodule or mass. Postoperative changes of the stomach. Partially imaged 7 cm left renal cyst. Cholecystectomy. Unremarkable soft tissues. No acute fracture. IMPRESSION: Unremarkable CT of the chest. Electronically signed by: Solitario Dean M.D. 10/30/2024 2:17 PM Chest X-Ray 10/30/24 12:57 XR chest 1V portable COMPARISON STUDY: 04/06/2022 FINDINGS: Heart size and pulmonary vasculature are normal. No consolidation or pleural effusion. No pneumothorax. IMPRESSION: No acute findings. Electronically signed by: Edgardo Wilson M.D. 10/30/2024 1:18 PM PG Care Time/CCT Total # of Minutes Spent Total Time Spent with Patient: Total time spent is greater than 50% in coordination of care (as documented) at patient's floor/unit and/or counseling patient: Coding Level of Care Code 66775 IN/OBS CONSULT LVL 3,45M Diagnoses Aspiration of foreign body, initial encounter T17.908A Encounter type: initial encounter Time Spent (min) 50 Comment Review chart/ imaging studies, history/ physical, update patient, nurse, provider.
--- NOTE | 2024-10-30 16:39 | History & Physical Report ---
Date of Service October 30, 2024 Assessment & Plan (1) Foreign body aspiration: (2) Anxiety: (3) Obesity (BMI 35.0-39.9 without comorbidity): Plan Phoebe is a 38-year-old female with a past medical history of PVCs anxiety and obesity who presents to the ER with foreign body sensation. #Foreign Body - foreign body sensation after ingesting trail mix 10/29. chest x-ray and chest CT without signs of foreign body Pulmonology consultedattempt for bronchoscopy this evening however resources are not available, will plan for bronchoscopy in a.m. of 10/31 NPO at midnight #Anxiety Has been off her celexa x 1.5 months. Very emotional about being in the hospital overnight ativan 0.5mg PO prn anxiety #obesity with BMI 37.3 continue Wegovy outpatient Dispo: obs to med/surg DVT proh: low risk, encourage ambulation History of Present Illness Chief Complaint: foreign body Primary Care Provider: Kathy Pereira PA-C Phoebe is a 38-year-old female with a past medical history of PVCs anxiety and obesity who presents to the ER with foreign body sensation. States that she was eating trail mix on 10/29 and thinks that she has a piece of peanut stuck in her throat. Initially she was having significant amount of coughing with minimal phlegm from this but the coughing has resolved. She still has a foreign body sensation. Denies pain. Patient is visibly emotional about having to stay overnight in the hospital. Denies fevers and chills at home. Has been able to eat and drink normally since. Took her vitamins this morning. Takes Wegovy which she normally injects on Sundays. Allergies Allergy/AdvReac Type Severity Reaction Status Date / Time shellfish derived Allergy Severe Tongue/Throat Verified 01/31/22 12:02 Swelling mold Allergy Intermediate HAYFEVER Verified 01/31/22 12:02 chlorhexidine Allergy Mild HIVES Verified 01/31/22 12:02 lactose Allergy Mild GI SYMPTOMS Verified 01/31/22 12:02 Sulfa (Sulfonamide Allergy Mild Unknown Verified 01/31/22 12:02 Antibiotics) cantaloupe Allergy Swelling Unverified 10/30/24 16:39 of Lip/Tongue/Throat Home Medications Medication Instructions Recorded Confirmed Type cholecalciferol (vitamin D3) 25 1,000 unit PO QAM 08/15/18 10/30/24 History mcg (1,000 unit) tablet (Vitamin D3) albuterol sulfate 90 mcg/actuation 2 puff inhalation QID PRN Wheezing 11/15/18 10/30/24 History aerosol inhaler multivitamin 1 tab PO DAILY 10/30/24 10/30/24 History semaglutide (weight loss) 0.5 0.5 mg subcut WK 10/30/24 10/30/24 History mg/0.5 mL subcutaneous pen injector (Wegovy) Past Med/Surg History Problem List (Updated 10/30/24 @ 16:[address] PA-C) Obesity (BMI 35.0-39.9 without comorbidity) Foreign body aspiration Encounter for pre-operative examination S/P appendectomy (Chronic) S/P cholecystectomy (Chronic) Symptoms involving urinary system (Acute) Medical History Morbid obesity with BMI of 50.0-59.9, adult Sleep apnea recent diagnosis--not currently on treatment History of COVID-19 06/2021 PCR test--mild symptoms last for 3 days she stated Nausea and vomiting after administration of anesthetic agent denies needing scop patch Adenomyosis Anxiety Stable PVC (premature ventricular contraction) OCCURED WITH INTERMITTENT FASTING- PT NO LONGER INTERMITTENT FASTING and denies known recurrence--also has metoprolol prn Fibrocystic breast disease Stable Surgical History History of partial hysterectomy 12/26/19 Grade 1 view, MAC 3, ETT 7.5. "required additional sedative" History of anesthesia reaction "PANIC ATTACK WAKING UP" History of carpal tunnel release RIGHT History of laparoscopic cholecystectomy 2016 History of appendectomy 2010 History of breast biopsy Left Breast [id number] History of tonsillectomy Family History Mother Arthritis Atrial flutter Heart disease Family history of reaction to anesthesia wakes up in panic and feels like she cant breathe Sister Gestational diabetes Bronchitis Asthma Family history of reaction to anesthesia nausea/vomiting Grandmother Diabetes Colorectal cancer Cancer Grandfather Cancer Social History Smoking Status: Former smoker Tobacco Type: Cigarettes Second Hand Exposure: No; Do You Dip or Chew Tobacco: No; Hx Alcohol Use: Yes Alcohol type: wine Hx Substance Use: No Preferred Language: Azerbaijani Communication Ability: Effective Supervisor Heavy Equipment Required: No Beliefs That Will Affect Care: None Current Living Situation: Spouse and Family Feels Safe at Home: Yes Assistive Devices: Contacts and Glasses Review of Systems Review of Systems: All systems reviewed & are unremarkable except as noted in Subjective Physical Exam Physical Exam: General: NAD, VS as above, tearful at the idea of having to stay overnight in the hospital Resp: normal respiratory effort, lungs clear to auscultation. No stridor CV: RRR, no murmur, Extremities: Moves all extremities, Neuro: A&O x3, Skin: intact, no lesions noted Results & Data Results & Data Vital Signs (Past 12 Hours) Vital Signs Temp Pulse Pulse Resp BP BP Pulse Ox 10/30/24 16:06 73 17 99 10/30/24 16:00 120/80 10/30/24 16:00 120/80 10/30/24 16:00 120/80 10/30/24 15:51 70 14 88 L 10/30/24 15:45 73 19 93 10/30/24 15:30 131/96 10/30/24 15:30 131/96 10/30/24 15:30 131/96 10/30/24 15:24 81 12 98 10/30/24 15:12 68 20 96 10/30/24 15:11 122/66 10/30/24 15:10 72 18 122/66 98 10/30/24 14:57 75 17 97 10/30/24 14:48 73 21 97 10/30/24 14:48 114/75 10/30/24 14:48 114/75 10/30/24 14:48 114/75 10/30/24 14:36 69 23 114/75 100 10/30/24 13:47 73 10/30/24 12:57 79 20 100 10/30/24 12:47 97.7 F 67 20 131/74 100 O2 Del Method 10/30/24 16:06 10/30/24 16:00 10/30/24 16:00 10/30/24 16:00 10/30/24 15:51 10/30/24 15:45 10/30/24 15:30 10/30/24 15:30 10/30/24 15:30 10/30/24 15:24 10/30/24 15:12 10/30/24 15:11 10/30/24 15:10 Room Air 10/30/24 14:57 10/30/24 14:48 10/30/24 14:48 10/30/24 14:48 10/30/24 14:48 10/30/24 14:36 10/30/24 13:47 10/30/24 12:57 Room Air 10/30/24 12:47 Room Air Laboratory Results CBC and chemistry reviewed Diagnostic Findings chest x-ray and chest CT reviewed PG Care Time/CCT Total # of Minutes Spent Total Time Spent with Patient: Total time spent is greater than 50% in coordination of care (as documented) at patient's floor/unit and/or counseling patient: Coding Level of Care Code 80197 INT INP/OBS CARE 3/75MIN Diagnoses Aspiration of foreign body, initial encounter T17.908A Encounter type: initial encounter Anxiety F41.9 Obesity (BMI 35.0-39.9 without comorbidity) E66.9 (1) Foreign body aspiration Encounter type: initial encounter Qualified Code(s): T17.908A - Unspecified foreign body in respiratory tract, part unspecified causing other injury, initial encounter
[2024-10-30] MEDS ORDERED: MELATONIN 3 MG TAB PO PRN (18:29)
[2024-10-30] MEDS ORDERED: ALBUTEROL HFA 8 GM INHALER INH PRN (18:29)
[2024-10-30] MEDS ORDERED: ACETAMINOPHEN 325 MG TAB PO PRN (18:29)
[2024-10-30] MEDS ORDERED: ONDANSETRON INJ 2 MG/ML 2 ML VIAL IV PRN (18:29)
[2024-10-30] MEDS ORDERED: LORazepam 0.5 MG TAB PO PRN (18:29)
--- NOTE | 2024-10-31 05:55 | Electrocardiogram Report ---
Test Reason : Blood Pressure : */* mmHG Vent. Rate : 72 BPM Atrial Rate : 72 BPM P-R Int : 144 ms QRS Dur : 84 ms QT Int : 414 ms P-R-T Axes : -20 -11 -12 degrees QTcB Int : 453 ms Sinus rhythm with Premature ventricular complexes Inferior infarct , age undetermined Abnormal ECG When compared with ECG of 06-Apr-2022 08:31, Premature ventricular complexes are no longer Present Inferior infarct is now Present T wave inversion now evident in Inferior leads Confirmed by Tramaine De Paz ([id number]) on 10/31/2024 5:55:09 AM Referred By: Confirmed By: Tramaine De Paz
--- NOTE | 2024-10-31 06:40 | Anesthesiology Consultation ---
Date of Service October 31, 2024 Assessment & Plan Chart Review Chart Review: Acceptable Risk for Surgery and Patient NOT seen in Pre Admission Testing Consults Requested none ASA [id number] Proposed Anesthesia Anesthesia Type: General History Surgery Operation Date: 10/31/24 07:15 Proposed Procedures p Diagnostic Bronchoscopy - El Mattson MD Height/Weight Height: 5 ft 6 in Weight: 104.1 kg Allergies Allergy/AdvReac Type Severity Reaction Status Date / Time shellfish derived Allergy Severe Tongue/Throat Verified 01/31/22 12:02 Swelling mold Allergy Intermediate HAYFEVER Verified 01/31/22 12:02 chlorhexidine Allergy Mild HIVES Verified 01/31/22 12:02 lactose Allergy Mild GI SYMPTOMS Verified 01/31/22 12:02 Sulfa (Sulfonamide Allergy Mild Unknown Verified 01/31/22 12:02 Antibiotics) cantaloupe Allergy Swelling Unverified 10/30/24 16:39 of Lip/Tongue/Throat Medications Home Medications Medication Instructions Recorded Confirmed Last Taken cholecalciferol (vitamin D3) 25 1,000 unit PO QAM 08/15/18 10/30/24 10/30/24 mcg (1,000 unit) tablet (Vitamin D3) albuterol sulfate 90 mcg/actuation 2 puff inhalation QID PRN Wheezing 11/15/18 10/30/24 10/30/24 aerosol inhaler multivitamin 1 tab PO DAILY 10/30/24 10/30/24 Unknown semaglutide (weight loss) 0.5 0.5 mg subcut WK 10/30/24 10/30/24 10/26/24 mg/0.5 mL subcutaneous pen injector (Wegovy) Past Medical History Medical History Morbid obesity with BMI of 50.0-59.9, adult Sleep apnea recent diagnosis--not currently on treatment History of COVID-19 06/2021 PCR test--mild symptoms last for 3 days she stated Nausea and vomiting after administration of anesthetic agent denies needing scop patch Adenomyosis Anxiety Stable PVC (premature ventricular contraction) OCCURED WITH INTERMITTENT FASTING- PT NO LONGER INTERMITTENT FASTING and denies known recurrence--also has metoprolol prn Fibrocystic breast disease Stable panic attacks Exercise / Class Metabolic Activity II 4-5 Yardwork/Stairs/Walk up hill Past Family History Family History Mother Arthritis Atrial flutter Heart disease Family history of reaction to anesthesia wakes up in panic and feels like she cant breathe Sister Gestational diabetes Bronchitis Asthma Family history of reaction to anesthesia nausea/vomiting Grandmother Diabetes Colorectal cancer Cancer Grandfather Cancer Past Surgical History Surgical History History of partial hysterectomy 12/26/19 Grade 1 view, MAC 3, ETT 7.5. "required additional sedative" History of anesthesia reaction "PANIC ATTACK WAKING UP" History of carpal tunnel release RIGHT History of laparoscopic cholecystectomy 2016 History of appendectomy 2010 History of breast biopsy Left Breast [id number] History of tonsillectomy Past Anesthesia History No Hx of Anesthesia Complications and No Family Hx of Anesthesia Complications History of PONV No Hx of PONV and No Hx of Motion Sickness Social History Smoking Status: Former smoker Do You Dip or Chew Tobacco: No Hx Alcohol Use: Yes Alcohol type: wine alcohol intake frequency: holidays/special occasions only Hx Substance Use: No substance use type: does not use Physical Exam Vital Signs Last Vital Signs Temp 36.6 C 10/30/24 23:04 Pulse 68 10/30/24 23:04 Resp 16 10/30/24 23:04 BP 117/78 10/30/24 23:04 Pulse Ox 98 10/30/24 23:04 O2 Del Method Room Air 10/30/24 23:15 Testing Laboratory Results 10/30/24 13:08 10/30/24 13:08 Electrocardiogram Date: 10/30/24 Findings: + NSR @ (@ 72w/ pvc's;? infer. infarct,age ?;T wave inversions infer. leads) Chest X-Ray Date: 10/30/24 Findings: + NAD
[2024-10-31] MEDS ORDERED: PROPOFOL IV EMULSION 10 MG/ML 20 ML VIAL IV ONE (07:04)
[2024-10-31] MEDS ORDERED: LIDOCAINE 2% 2 ML VIAL/AMP(20MG/ML) INFIL ONE (07:04)
[2024-10-31] MEDS ORDERED: ONDANSETRON INJ 2 MG/ML 2 ML VIAL ONE (07:04)
[2024-10-31] MEDS ORDERED: ROCURONIUM BROMIDE 10 MG/ML 5 ML VIAL IV ONE (07:04)
[2024-10-31] MEDS ORDERED: MIDAZOLAM HCL 1 MG/ML 2ML VIAL ONE (07:04)
[2024-10-31] MEDS ORDERED: FLUMAZENIL 0.1 MG/1 ML 10 ML VIAL IV PRN (07:06)
[2024-10-31] MEDS ORDERED: ATROPINE SULFATE 0.1 MG/ML 10ML SYR IV PRN (07:06)
[2024-10-31] MEDS ORDERED: ONDANSETRON INJ 2 MG/ML 2 ML VIAL IV PRN (07:06)
[2024-10-31] MEDS ORDERED: NALOXONE HCL 0.4 MG/1 ML VIAL/CARP IV PRN (07:06)
[2024-10-31] MEDS ORDERED: PROMETHAZINE HCL 6.25 MG in SODIUM CHLORIDE 0.9% 50 ML IV PRN (07:06)
[2024-10-31] MEDS: LACTATED RINGER'S 1,000 ML IV SCH (07:15)
[2024-10-31] MEDS ORDERED: DexMEDEtomidine HCL IV 100 MCG/ML VIAL IV ONE (07:15)
--- NOTE | 2024-10-31 07:40 | History & Physical Bridge Note ---
Date of Service October 31, 2024 History & Physical Bridge Note I have examined the patient, reviewed the History & Physical and in the interval since the performance of the History & Physical I have noted the following changes of clinical significance: no changes noted
[2024-10-31] MEDS ORDERED: SUGAMMADEX SODIUM 200 MG/2 ML VIAL IV ONE (08:08)
[2024-10-31] MEDS ORDERED: DEXAMETHASONE SOD INJ 4 MG/ML VIAL ONE (08:08)
--- NOTE | 2024-10-31 08:20 | Discharge Summary ---
Discharge Summary Date of Service October 31, 2024 Principal Dx & Hospital Course #1 = Principal Diagnosis (1) Foreign body aspiration: (2) Anxiety: (3) Obesity (BMI 35.0-39.9 without comorbidity): Lucas Sandhu is a 38-year-old female with a past medical history of PVCs anxiety and obesity who presents to the ER with foreign body sensation. #Foreign Body - foreign body sensation after ingesting trail mix 10/29. chest x-ray and chest CT without signs of foreign body Pulmonology consultedbronchoscopy was performed 10/31 without evidence of any foreign body/inhaled material, however A irregular protrusion from the anterior pharyngeal surface about 3 cm and the epiglottis was noted. She was not having any airway compromise or difficulty breathing. Did review with patient broad differential including potential malignancy, but will need further evaluation and likely biopsy as next up. ENT was consulted, discussed with FARHANA. Patient has been scheduled for outpatient ENT follow-up 11/03/2024 at 2 PM. Return precautions for any airway change/stridor/difficulty breathing were discussed which patient is agreeable Wegovy held pending further evaluation #Anxiety Has been off her celexa x 1.5 months. Very emotional about being in the hospital overnight ativan 0.5mg PO prn anxiety #obesity with BMI 37.3 continue Wegovy outpatient Recommended to hold Wegovy pending ENT evaluation as they may wish to be held for up to a week prior to biopsy Admission HPI Per Admitting Provider Phoebe is a 38-year-old female with a past medical history of PVCs anxiety and obesity who presents to the ER with foreign body sensation. States that she was eating trail mix on 10/29 and thinks that she has a piece of peanut stuck in her throat. Initially she was having significant amount of coughing with minimal phlegm from this but the coughing has resolved. She still has a foreign body sensation. Denies pain. Patient is visibly emotional about having to stay overnight in the hospital. Denies fevers and chills at home. Has been able to eat and drink normally since. Took her vitamins this morning. Takes Wegovy which she normally injects on Sundays. Discharge Exam General: A&Ox3. NAD. Cooperative. HEENT: Atraumatic, normocephalic. Pulm: CTAB A&P. -wheezes, -rales, -rhonchi. Symmetrical chest rise. No increased work of breathing. No respiratory distress. Cardiac: RRR, -mrg. Radial pulses intact and symmetrical. Abdominal: Nontender, nondistended, soft. BS present. Extremities: Warm, dry. Discharge Plan Discharge Items Patient Disposition: Home - Self-Care Reason For Visit: FOREIGN BODY Discharge Diagnosis: Foreign Body Aspiration Condition on Discharge: Good Activity: Resume your previous activity Non-emergency contact: Primary Care Provider Call non-emergency contact if: you have any medication questions, your symptoms worsen and your pain is not controlled Follow-up/Referrals: Kathy Pereira PA-C [Primary Care Provider] - Reid Michael MD [Physician] - 11/03/24 2:00 pm Diet: Regular Addtl Attending Provider Instructions: You were seen for an aspiration of a peanut/foreign body during admission. This required bronchoscopy which was performed 10/31/2024. This did not show any aspirated material however there was a mass/area of concern noted in your throat that will require ENT follow-up and likely biopsy. You have been scheduled for a appointment with Dr. Weaver ENT 11/03/2024 at 2 PM for evaluation. If you have any difficulty breathing, wheezing/squeaking while taking breaths, or shortness of breath please seek immediate medical attention in the emergency department. If you develop any new or worsening symptoms including fever, chills, sweats, chest pain, chest pressure, difficulty breathing, uncontrolled nausea/vomiting, rash, wheezing, passing out or nearly passing out, bleeding, black/bloody bowel movements, or other new or concerning symptoms please call your primary care physician, or call 911 for re-evaluation in the emergency department if you are very concerned. Pending Studies at Discharge: No Stand-Alone Forms: My [employer],, Smoking Cessation Medications and DC Order Prescriptions: Continued cholecalciferol (vitamin D3) [Vitamin D3] 1,000 unit Tablet 1,000 unit PO QAM albuterol sulfate 90 mcg/actuation HFA aerosol inhaler 2 puff inhalation QID PRN (Reason: Wheezing) Wegovy 0.5 mg/0.5 mL pen injector 0.5 mg SUBCUT WK Rx Instructions: Sunday multivitamin Tablet 1 tab PO DAILY Discharge Orders: Discharge Order (Routine); Ordered 10/31/24 Ordered By: Jonas Zhang Admission Data Admit Date/Time: 10/30/24 16:50 Attending Provider: Jonas Zhang Admit Provider: Jonas Zhang Primary Care Provider: Kathy Pereira Other Providers: El Mattson; Jonas Zhang; [place]; Kathy Quinonez; Jalil Pendleton; Reid Michael; Denis Zimmerman; Romelia Castellano; Derick Mcelroy; Hari Oseguera; Terry Joseph; Lopez Ambrose; David Harrell II; Susana Lane; Angélica Hernandez Hospital Stay Data Consultations 10/30/24 15:09 Consult Pulmonology Stat 10/30/24 15:45 ED Decision to Admit Stat Procedures Performed Operation Date: 10/31/24 07:15 Actual Procedures p Diagnostic Bronchoscopy(Not Applicable) - El Mattson MD Diagnostic Imagining Performed 10/30/24 12:57 CT chest diagnostic w con Stat Discharge Instructions Given to Patient (Per Discharging Provider) You were seen for an aspiration of a peanut/foreign body during admission. This required bronchoscopy which was performed 10/31/2024. This did not show any aspirated material however there was a mass/area of concern noted in your throat that will require ENT follow-up and likely biopsy. You have been scheduled for a appointment with Dr. Weaver ENT 11/03/2024 at 2 PM for evaluation. If you have any difficulty breathing, wheezing/squeaking while taking breaths, or shortness of breath please seek immediate medical attention in the emergency department. If you develop any new or worsening symptoms including fever, chills, sweats, chest pain, chest pressure, difficulty breathing, uncontrolled nausea/vomiting, rash, wheezing, passing out or nearly passing out, bleeding, black/bloody bowel movements, or other new or concerning symptoms please call your primary care physician, or call 911 for re-evaluation in the emergency department if you are very concerned. Total Time Total Time Spent Total Time Spent (In Minutes): Time spend day of discharge 40 minutes including direct patient care, documentation, review of labs and images, and coordination of care. Coding Level of Care Code 01050 INP/OBS DISCH >30 MIN Diagnoses Aspiration of foreign body, initial encounter T17.908A Encounter type: initial encounter Anxiety F41.9 Obesity (BMI 35.0-39.9 without comorbidity) E66.9
--- NOTE | 2024-10-31 08:34 | Procedure Note ---
Procedure Note: Bronchoscopy Procedure Procedure: Flexible Bronchoscopy Attending/Industrial Editor: El Mattson MD Anesthetic/Sedation: Moderate anesthesia followed by General Anesthesia with intubation provided by Anesthesia service Indication: Suspected aspiration of foreign body [Consent was signed and placed on the chart prior to procedure. Indication, risks, and benefits were explained at length. A time-out was completed verifying correct patient, procedure, and equipment. Findings: Initially the patient's nasal passages were anesthetized and serially dilated. The patient was started on moderate anesthesia using Propofol. Examination of the upper airway was performed via the right naris. There were no foreign bodies detected or evidence of inflammation or irritation from a foreign body; however, an irregular warty protrusion was noted on the anterior laryngeal surface around 3-4 cm rostral of the tip of the epiglottis while the latter was open. The lesion was estimated at around 1 (sagittal/caudal-rostral)x 1.5 (coronal/medio-lateral) x 0.5 cm (axial/AP). After insuring absence of foreign bodies in the upper airway, the patient was intubated for the examination of tracheo-bronchial tree (Airway needed protection as patient took her GLP-1 within 5 days). Trachea No foreign bodies or lesions or suggestion of irritation. Main Sarahy No foreign bodies or lesions or suggestion of irritation. LEFT Mainstem Bronchus: No foreign bodies or lesions or suggestion of irritation. BRODY No foreign bodies or lesions or suggestion of irritation. LLL No foreign bodies or lesions or suggestion of irritation. RIGHT Mainstem Bronchus: No foreign bodies or lesions or suggestion of irritation. RUL: No foreign bodies or lesions or suggestion of irritation. RIGHT Bronchus Intermedius: No foreign bodies or lesions or suggestion of irritation. RML No foreign bodies or lesions or suggestion of irritation. RLL No foreign bodies or lesions or suggestion of irritation. Specimens: None Complications: NONE Impression: Warty mucosal lesion of the anterior laryngeal surface rostral to the epiglottis. Plan: Will refer the patient to ENT for further evaluation of possible laryngeal malignancy. Images: Print out of images added to patients physical chart. [facility] [place] Procedure Codes (Charges) Indication for Procedure Indication for procedure: Suspected aspiration of foreign body.
--- NOTE | 2024-10-31 09:19 | Anesthesiology Progress Note ---
Date of Service October 31, 2024 Anesthesia Post Procedure Vital Signs Vital Signs: Temp Pulse Pulse Pulse Resp BP BP 10/31/24 09:00 36.8 C 84 14 107/65 10/31/24 08:50 90 14 111/63 10/31/24 08:40 87 20 109/64 10/31/24 08:33 36.2 C L 87 18 114/56 L 10/31/24 06:53 36.9 C 90 18 10/30/24 23:15 10/30/24 23:04 36.6 C 68 16 117/78 10/30/24 18:30 36.8 C 69 18 117/78 10/30/24 17:30 78 18 119/78 10/30/24 16:06 73 17 10/30/24 16:00 120/80 10/30/24 16:00 120/80 10/30/24 16:00 120/80 10/30/24 15:51 70 14 10/30/24 15:45 73 19 10/30/24 15:30 131/96 10/30/24 15:30 131/96 10/30/24 15:30 131/96 10/30/24 15:24 81 12 10/30/24 15:12 68 20 10/30/24 15:11 122/66 10/30/24 15:10 72 18 122/66 10/30/24 14:57 75 17 10/30/24 14:48 73 21 10/30/24 14:48 114/75 10/30/24 14:48 114/75 10/30/24 14:48 114/75 10/30/24 14:36 69 23 114/75 10/30/24 13:47 73 10/30/24 12:57 79 20 10/30/24 12:47 36.5 C 67 20 131/74 Pulse Ox O2 Del Method O2 Flow Rate 10/31/24 09:00 94 Room Air 10/31/24 08:50 95 Room Air 10/31/24 08:40 97 Oxymask 3 10/31/24 08:33 99 Oxymask 6 10/31/24 06:53 100 Room Air 10/30/24 23:15 Room Air 10/30/24 23:04 98 Room Air 10/30/24 18:30 99 Room Air 10/30/24 17:30 97 Room Air 10/30/24 16:06 99 10/30/24 16:00 10/30/24 16:00 10/30/24 16:00 10/30/24 15:51 88 L 10/30/24 15:45 93 10/30/24 15:30 10/30/24 15:30 10/30/24 15:30 10/30/24 15:24 98 10/30/24 15:12 96 10/30/24 15:11 10/30/24 15:10 98 Room Air 10/30/24 14:57 97 10/30/24 14:48 97 10/30/24 14:48 10/30/24 14:48 10/30/24 14:48 10/30/24 14:36 100 10/30/24 13:47 10/30/24 12:57 100 Room Air 10/30/24 12:47 100 Room Air Transfer of Care Handoff Completed per policy Notes Mental Status: alert / awake / arousable Patient Amnestic to Procedure: Yes Nausea / Vomiting: adequately controlled Pain: adequately controlled Airway Patency, RR, SpO2: stable & adequate BP & HR: stable & adequate Hydration State: stable & adequate Anesthetic Complications: no major complications apparent
[2024-10-31 09:24] VITALS: RESP 16
[2024-10-31 10:15] VITALS: TEMP 98.1; O2SAT 97
[2024-10-31 11:35] VITALS: BP 107/65; PULSE 84
== END 2024-10-31 11:58 | disposition home or self-care (01) ==
LOC: ED 12:38 → 3E 16:50 → INTOOBSV 16:50 → 3E 18:25